=== PATIENT | female | born 1965 | race Caucasian/White ===

== ENCOUNTER 2017-12-17 15:04 | Emergency (ER) | payer OTHER ==
[~2017-12-17] VITALS: Ht 165.1 cm; Wt 49.9 kg
[2017-12-17 14:59] VITALS: BP 107/78
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
[2017-12-17] MEDS ORDERED: ROBAXIN500 MG PO ×2 (16:12→16:22)
[2017-12-17] MEDS ORDERED: TYLENOL EXTRA500 MG ORAL ×2 (16:12→16:22)
[2017-12-17] MEDS ORDERED: LIDODERM700 M1 TOPIC ×2 (16:12→16:22)
[2017-12-17 16:23] VITALS: BP 107/78
[2017-12-17] MEDS ORDERED: TIZANIDINE HCL4 MG ORAL ×2 (17:05→19:10)
[2017-12-17] MEDS ORDERED: CYCLOBENZAPRINE10 MG ORAL (19:27)
== END 2017-12-17 16:24 | disposition home or self-care (01) ==
LOC: EDBD 15:04 → EMR 15:30
DX: S16.1XXA Strain of muscle, fascia and tendon at neck level, initial encounter (principal); S00.93XA Contusion of unspecified part of head, initial encounter; V43.52XA Car driver injured in collision with other type car in traffic accident, initial encounter; Y92.410 Unspecified street and highway as the place of occurrence of the external cause; Y99.0 Civilian activity done for income or pay; R51 Headache; Z88.2 Allergy status to sulfonamides
CPT/HCPCS: 99284